=== PATIENT | male | born 1960 | race Caucasian/White ===

== ENCOUNTER 2017-02-12 15:05 | Emergency (ER) | payer SELFPAY ==
[2017-02-12 15:08] VITALS: BP 136/71; PULSE 77; RESP 16; TEMP 98.4; O2SAT 99
[2017-02-12] MEDS ORDERED: predniSONE 20 MG TAB PO ONE (15:30)
[2017-02-12] MEDS ORDERED: FAMOTIDINE 20 MG TAB PO ONE (15:30)
--- NOTE | 2017-02-12 15:33 | PD ---
HPI Chief Complaint: Skin Problem Time Seen by Provider: 15:21 Travel History International Travel<30 days: No Contact w/Intl Traveler<30days: No Traveled to known affect area: No History of Present Illness HPI Patient comes in complaining of a pruritic rash that he first noticed 2-3 days ago on his back. Patient denies doing anything for it. Patient states he has some associated mild discomfort that he describes as feeling like a biting sensation in the skin. Patient does carry a backpack and states he thinks this is irritating it. Denies any weight loss, fevers, nausea, vomiting, abdominal pain, shortness of breath, chest pain, being around anyone else with similar, or any known new allergen exposures. Denies anything making it better. Severity mild. PFSH Past Medical History Anxiety: Yes Depression: Yes Diabetes: No Diminished Hearing: No Neurologic: Yes (SCIATICA) Psychiatric: Yes Immunizations Current: Yes PNEUMOCCOCAL Vaccine (Year): 2010 Past Surgical History Oral Surgery: Yes Social History Alcohol Use: Yes Tobacco Use: Yes ("sometimes") Substance Use: Yes Allergies-Medications (Allergen,Severity, Reaction): Coded Allergies: penicillin G (Verified Allergy, Intermediate, rash, 02/12/17) cephalexin (Verified Allergy, Mild, rash, 02/12/17) Reported Meds & Prescriptions Reported Meds & Active Scripts Active Pepcid (Famotidine) 20 Mg Tab 20 Mg PO BID 10 Days Medrol Dosepak (Methylprednisolone) 4 Mg Dspk 4 Mg PO DIRECTED Per Pharmacist direction Review of Systems Except as stated in HPI: all other systems reviewed are Neg Physical Exam Narrative GENERAL: Well-developed, overly nourished, in no acute distress, and non-ill appearing. SKIN: Focused skin assessment warm and dry. There is a blanching erythematous rash noted on left lateral chest wall and right posterior thoracic cavity. Rash appears possibly from skin irritation. No fluctuation, induration, crepitus, drainage, or open wound. Rash is not consistent with shingles, scabies, folliculitis, abscess, or gangrene. HEAD: Atraumatic. Normocephalic. EYES: Pupils equal and round. EOMI. No scleral icterus. No injection or drainage. ENT: No nasal bleeding or discharge. Mucous membranes pink and moist. NECK: Trachea midline. Supple. No nuclear rigidity. RESPIRATORY: No accessory muscle use. No respiratory distress. MUSCULOSKELETAL: No obvious deformities. No clubbing. No cyanosis. No edema. Full range of motion. NEUROLOGICAL: Awake and alert. No obvious cranial nerve deficits. Motor grossly within normal limits. Normal speech. PSYCHIATRIC: Appropriate mood and affect; insight and judgment normal. Data Data Last Documented VS Vital Signs Date Time Temp Pulse Resp B/P (MAP) Pulse Ox O2 Delivery O2 Flow Rate FiO2 02/12/17 15:45 97.9 76 17 120/83 (95) 99 Orders Orders Prednisone (Deltasone) (02/12/17 15:30) Famotidine (Pepcid) (02/12/17 15:30) MDM Medical Decision Making Medical Screen Exam Complete: Yes Emergency Medical Condition: Yes Differential Diagnosis Staph, folliculitis, shingles, allergic reaction, scabies, rash, other Narrative Course The patient presented with nonspecific rash/dermatitis. There were no blisters or bullae, target lesions, purpura or petechia, nor vesiculobullous or scarlatiniform lesions. The patient looks great and was non-ill appearing. There was no evidence to suggest scabies, cellulitis, folliculitis or abscess, Staph. Scalded Skin Syndrome, Toxic Shock, Toxic Epidermal necrolysis, Kawasaki , Measles, Rubella, cutaneous T cell lymphoma, Erythema Multiforme (minor or major). Plan of care was discussed with the patient and the patient is to follow up with their physician. The patient agreed with plan. Patient in no obvious distress upon re-evaluation. Patient was asked if they wanted to speak to my attending, which the patient did not wish to do at this time. Any questions/concerns in reference to patient diagnosis/condition discussed and clarified prior to patient's discharge. Reinforced sheer importance of close follow up with patient's primary physician or primary care clinic. Instructed patient to return to ED immediately, if symptoms return/ worsen. Pt showed understanding of above instructions. Further instructions and recommendations were detailed in discharge paperwork. Pt ambulated without difficulty out of ED at discharge. Diagnosis Primary Impression: Rash Patient Instructions: Acute Rash (ED), General Instructions Additional Instructions: Follow-up with your primary care physician in 3-5 days for reevaluation. Take all medication as prescribed. Use [id number] Benadryl or Claritin or Zyrtec for symptomatic relief. Follow instructions on the packaging. Return to the emergency department if symptoms get worse. Med/Other Pt SpecificInfo: Prescription(s) given Scripts Famotidine (Pepcid) 20 Mg Tab 20 MG PO BID for 10 Days, TAB 0 Refills Prov: Emanuel Clayton MD 02/12/17 Methylprednisolone Dosepak (Medrol Dosepak) 4 Mg Dspk 4 MG PO DIRECTED, #1 DSPK 0 Refills Per Pharmacist direction Prov: Emanuel Clayton MD 02/12/17 Disposition: 01 DISCHARGE HOME Condition: Stable Feliberto Baxter Feb 12, 2017 15:33
[2017-02-12] MEDS ORDERED: MEDR4PAK PO (15:34)
[2017-02-12] MEDS ORDERED: FAMO1TAB37 PO (15:34)
[2017-02-12 15:45] VITALS: BP 120/83; TEMP 97.9
== END 2017-02-12 15:45 | disposition home or self-care (01) ==
LOC: NEPD 15:05
DX: R21 Rash and other nonspecific skin eruption (principal); Z72.0 Tobacco use
CPT/HCPCS: 99284; J7512

== ENCOUNTER 2017-03-25 06:59 | Emergency (ER) | payer SELFPAY ==
[~2017-03-25] VITALS: Ht 180.3 cm; Wt 93.0 kg
[~2017-03-25 06:59] MED LIST: FAMO1TAB37 PO; MEDR4PAK PO
[2017-03-25 07:08] VITALS: BP 133/79; PULSE 77; RESP 16; TEMP 98.6; O2SAT 95
[2017-03-25] MEDS ORDERED: CLAR5TAB9 PO (07:35)
--- NOTE | 2017-03-25 07:35 | PD ---
HPI Chief Complaint: ENT Complaint Time Seen by Provider: 07:24 Travel History International Travel<30 days: No Contact w/Intl Traveler<30days: No Traveled to known affect area: No History of Present Illness HPI The patient is a 56-year-old male who presents to the emergency department for left ear pain. The patient notes a one-week history of left ear pain that is associated with fullness, occasional ringing of the ear, muffled hearing, and mild discomfort of the left ear. He denies any drainage from the left ear and denies any trauma to the left ear. The patient does have a history of similar symptoms in the past. He denies any sore throat or significant anterior cervical neck pain. He denies any associated fever, chills , or sweats. The patient denies any chronic medical problems, medications, but is allergic to Keflex and penicillin G. The patient denies any associated nausea, vomiting, fever, chills, or sweats. Symptoms are mild, there are no current alleviating or exacerbating factors. PFSH Past Medical History Anxiety: Yes Depression: Yes Diabetes: No Diminished Hearing: No Neurologic: Yes (SCIATICA) Psychiatric: Yes Immunizations Current: Yes Tetanus Vaccination: < 5 Years Influenza Vaccination: Yes PNEUMOCCOCAL Vaccine (Year): 2010 Past Surgical History Oral Surgery: Yes Social History Alcohol Use: Yes (ocassionally) Tobacco Use: Yes ("sometimes") Substance Use: No (pt denies) Allergies-Medications (Allergen,Severity, Reaction): Coded Allergies: penicillin G (Verified Allergy, Intermediate, rash, 03/25/17) cephalexin (Verified Allergy, Mild, rash, 03/25/17) Reported Meds & Prescriptions Reported Meds & Active Scripts Active Review of Systems General / Constitutional: No: Fever HENT: Positive: Earache, No: Headaches, Vertigo, Lightheadedness, Sore Throat, Congestion, Neck Pain Gastrointestinal: No: Nausea, Vomiting Skin: No Rash Neurologic: No: Dizziness Physical Exam Narrative GENERAL: Awake, alert, nontoxic-appearing 56-year-old male who appears his stated age and is in no acute respiratory distress. SKIN: Focused skin assessment warm/dry. HEAD: Atraumatic. Normocephalic. EYES: Pupils equal and round. No scleral icterus. No injection or drainage. ENT: No nasal bleeding or discharge. Mucous membranes pink and moist. The right TM is translucent and the right EAC is clear. The left tympanic membranes is dull with slight bulge but no erythema. Left EAC is clear. Minimal left tragal tenderness. Cobblestoning in posterior oropharynx but no exudate. NECK: Trachea midline. No JVD. No cervical lymphadenopathy noted. No posterior occipital/cervical lymphadenopathy noted. MUSCULOSKELETAL: No obvious deformities. No clubbing. No cyanosis. No edema. NEUROLOGICAL: Awake and alert. No obvious cranial nerve deficits. Motor grossly within normal limits. Normal speech. Nonfocal. Oriented 4. PSYCHIATRIC: Appropriate mood and affect; insight and judgment normal. Data Data Last Documented VS Vital Signs Date Time Temp Pulse Resp B/P (MAP) Pulse Ox O2 Delivery O2 Flow Rate FiO2 03/25/17 07:08 98.6 77 16 133/79 (97) 95 MDM Medical Decision Making Medical Screen Exam Complete: Yes Emergency Medical Condition: Yes Medical Record Reviewed: Yes Differential Diagnosis Differential diagnosis includes otitis media, otitis externa, serous otitis, eustachian tube dysfunction, otalgia, vertebral artery dissection, carotid artery dissection, pharyngitis, tonsillitis, pharyngeal abscess. Narrative Course The patient's physical examination and symptoms are consistent with serous otitis, may be secondary to eustachian tube dysfunction. The patient is nonfocal on exam, doubt carotid or vertebral artery dissection. The patient is currently homeless and does not have medical insurance, therefore, patient was administered an injection of Decadron 8 mg IM for possible eustachian tube dysfunction and inflammation and will be placed on Claritin-D twice a day for 2 weeks. He states he has no history of hypertension. He is advised to follow- up with ENT if symptoms persist. Diagnosis Primary Impression: Serous otitis media Qualified Codes: H65.05 - Acute serous otitis media, recurrent, left ear Additional Impression: Otalgia of left ear Patient Instructions: General Instructions Additional Instructions: Medication as directed. Follow-up with ENT or primary physician if symptoms persist. Avoid placing Q-tips into the left ear. Return if symptoms worsen or progress. Med/Other Pt SpecificInfo: Prescription(s) given Scripts Loratadine-Pseudoephedrine 12 HR (Claritin-D 12 HR) 5-120 Mg Tab 1 TAB PO BID for Allergy Management for 14 Days, #28 TAB 0 Refills Prov: Davey Elizondo MD 03/25/17 Disposition: 01 DISCHARGE HOME Condition: Stable Davey Elizondo MD Mar 25, 2017 07:35
[2017-03-25] MEDS ORDERED: DEXAMETHASONE SOD PHOS 4 MG/ML VIAL IM ONE (07:45)
== END 2017-03-25 08:13 | disposition home or self-care (01) ==
LOC: PHED 06:59
DX: H65.05 Acute serous otitis media, recurrent, left ear (principal); Z72.0 Tobacco use
CPT/HCPCS: 96372; 99284; J1100

== ENCOUNTER 2017-06-10 07:35 | Emergency (ER) | payer SELFPAY ==
[~2017-06-10] VITALS: Ht 177.8 cm; Wt 82.0 kg
[2017-06-10 07:35] VITALS: BP 119/71; PULSE 53; RESP 18; TEMP 97.5; O2SAT 97
[~2017-06-10 07:35] MED LIST changes: +CLAR5TAB9 PO; -FAMO1TAB37 PO; -MEDR4PAK PO
[2017-06-10] MEDS ORDERED: SODIUM CHLORIDE 0.9% FLUSH 10 ML FLUSH IV FLUSH PRN (08:00)
[2017-06-10] MEDS ORDERED: ONDANSETRON HCL 4 MG/2 ML VIAL IVP ONE (08:00)
[2017-06-10] MEDS ORDERED: SODIUM CHLOR 0.9% 1000 ML INJ 1,000 ML IV ONE (08:00)
--- NOTE | 2017-06-10 08:02 | PD ---
HPI Chief Complaint: GI Complaint Time Seen by Provider: 07:49 Travel History International Travel<30 days: No Contact w/Intl Traveler<30days: No Traveled to known affect area: No History of Present Illness HPI This patient complains of nausea and vomiting and diarrhea. Duration 3 days. Severity is moderate. He had very minor abdominal cramping but not sustained and has resolved. Denies fever. He reported there was some blood in his diarrhea and some blood in his vomit. He denies alcohol abuse or drug use. No alleviating factors. No Exacerbating factors. PFSH Past Medical History Anxiety: Yes Depression: Yes Diabetes: No Diminished Hearing: No Neurologic: Yes (SCIATICA) Psychiatric: Yes Immunizations Current: Yes Tetanus Vaccination: < 5 Years Influenza Vaccination: Yes PNEUMOCCOCAL Vaccine (Year): 2010 Past Surgical History Oral Surgery: Yes Social History Alcohol Use: Yes (ocassionally) Tobacco Use: Yes ("sometimes") Substance Use: No (pt denies) Allergies-Medications (Allergen,Severity, Reaction): Coded Allergies: penicillin G (Verified Allergy, Intermediate, rash, 06/10/17) cephalexin (Verified Allergy, Mild, rash, 06/10/17) Reported Meds & Prescriptions Reported Meds & Active Scripts Active No Active Prescriptions or Reported Medications Review of Systems General / Constitutional: No: Fever Eyes: No: Visual changes HENT: No: Headaches Cardiovascular: No: Chest Pain or Discomfort Respiratory: No: Shortness of Breath Gastrointestinal: Positive: Nausea, Vomiting, Diarrhea, No: Abdominal Pain Genitourinary: No: Dysuria Musculoskeletal: No: Pain Skin: No Rash Neurologic: No: Weakness Psychiatric: No: Depression Endocrine: No: Polydipsia Hematologic/Lymphatic: No: Easy Bruising Physical Exam Narrative GENERAL: Well-nourished, well-developed patient in no apparent distress. SKIN: Focused skin assessment reveals no rash and nodules. Skin is Warm and dry. HEAD: Atraumatic. Normocephalic. EYES: Pupils equal and round. No scleral icterus. No injection or drainage. ENT: No nasal bleeding or discharge. Mucous membranes pink and moist. NECK: Trachea midline. No JVD. CARDIOVASCULAR: Regular rate and rhythm. No murmur appreciated. RESPIRATORY: No accessory muscle use. Clear to auscultation. Breath sounds equal bilaterally. GASTROINTESTINAL: Abdomen soft, non-tender, nondistended. Hepatic and splenic margins not palpable. MUSCULOSKELETAL: No obvious deformities. No clubbing. No cyanosis. No edema. NEUROLOGICAL: Awake and alert. No obvious cranial nerve deficits. Motor grossly within normal limits. Normal speech. PSYCHIATRIC: Appropriate mood and affect; insight and judgment normal. Data Data Last Documented VS Vital Signs Date Time Temp Pulse Resp B/P (MAP) Pulse Ox O2 Delivery O2 Flow Rate FiO2 06/10/17 07:35 97.5 53 18 119/71 (87) 97 Orders Orders Complete Blood Count With Diff (06/10/17 07:54) Comprehensive Metabolic Panel (06/10/17 07:54) Lipase (06/10/17 07:54) Prothrombin Time / Inr (Pt) (06/10/17 07:54) Act Partial Throm Time (Ptt) (06/10/17 07:54) Iv Access Insert/Monitor (06/10/17 07:54) Ecg Monitoring (06/10/17 07:54) Oximetry (06/10/17 07:54) NPO (06/10/17 07:54) Ondansetron Inj (Zofran Inj) (06/10/17 08:00) Sodium Chloride 0.9% Flush (Ns Flush) (06/10/17 08:00) Sodium Chlor 0.9% 1000 Ml Inj (Ns 1000 M (06/10/17 08:00) Labs Laboratory Tests Test 06/10/17 08:03 White Blood Count 6.6 TH/MM3 Red Blood Count 4.75 MIL/MM3 Hemoglobin 14.6 GM/DL Hematocrit 44.0 % Mean Corpuscular Volume 92.5 FL Mean Corpuscular Hemoglobin 30.8 PG Mean Corpuscular Hemoglobin Concent 33.2 % Red Cell Distribution Width 11.3 % Platelet Count 200 TH/MM3 Mean Platelet Volume 8.2 FL Neutrophils (%) (Auto) 71.1 % Lymphocytes (%) (Auto) 21.4 % Monocytes (%) (Auto) 6.6 % Eosinophils (%) (Auto) 0.5 % Basophils (%) (Auto) 0.4 % Neutrophils # (Auto) 4.8 TH/MM3 Lymphocytes # (Auto) 1.4 TH/MM3 Monocytes # (Auto) 0.4 TH/MM3 Eosinophils # (Auto) 0.0 TH/MM3 Basophils # (Auto) 0.0 TH/MM3 CBC Comment DIFF FINAL Differential Comment Prothrombin Time 11.1 SEC Prothromb Time International Ratio 1.1 RATIO Activated Partial Thromboplast Time 25.2 SEC Blood Urea Nitrogen 12 MG/DL Creatinine 0.93 MG/DL Random Glucose 129 MG/DL Total Protein 7.1 GM/DL Albumin 3.7 GM/DL Calcium Level 8.7 MG/DL Alkaline Phosphatase 56 U/L Aspartate Amino Transf (AST/SGOT) 11 U/L Alanine Aminotransferase (ALT/SGPT) 20 U/L Total Bilirubin 0.7 MG/DL Sodium Level 140 MEQ/L Potassium Level 3.9 MEQ/L Chloride Level 105 MEQ/L Carbon Dioxide Level 26.2 MEQ/L Anion Gap 9 MEQ/L Estimat Glomerular Filtration Rate 84 ML/MIN Lipase 64 U/L MDM Medical Decision Making Medical Screen Exam Complete: Yes Emergency Medical Condition: Yes Medical Record Reviewed: Yes Differential Diagnosis Gastroenteritis, colitis, gastric ulcer Narrative Course I have reviewed the patient's electronic medical record. IV placed I gave him IV Zofran and 1 L normal saline IV bolus CBC is normal Metabolic profile is normal LFTs are normal Lipase is normal Coagulation studies are normal On recheck he is clinically improved. He has normal vital signs and normal lab survey Zofran prescribed Stable for outpatient follow-up Diagnosis Primary Impression: Nausea vomiting and diarrhea Additional Impression: Dizziness Additional Instructions: The patient was advised to follow up with their physician and return if they worsen. I have recommended clear liquids for 24 hours, then gradually advance as tolerated. Med/Other Pt SpecificInfo: Prescription(s) given Scripts Ondansetron (Zofran) 4 Mg Tab 4 MG PO Q6HR Y for NAUSEA OR VOMITING, #12 TAB 0 Refills Prov: Emanuel Clayton MD 06/10/17 Disposition: DISCHARGE HOME Condition: Stable Emanuel Clayton MD Jun 10, 2017 08:02
[2017-06-10] MEDS ORDERED: ZOFR4TAB PO (08:50)
[2017-06-10 09:37] LABS: AUTOMATED NEUTROPHIL # 6.4 TH/MM3 (1.8-7.7); BASOPHIL % 0.4 % (0.0-2.0); EOSINOPHIL % 0.4 % (0.0-4.0); HEMATOCRIT 42.5 % (39.0-51.0); HEMOGLOBIN 14.3 GM/DL (13.0-17.0); LYMPH % 12.1 % (9.0-44.0); MEAN CELL VOLUME 91.6 FL (80.0-100.0); MEAN CORPUSCULAR HEMOGLOBIN 30.9 PG (27.0-34.0); MEAN CORPUSCULAR HGB CONC 33.8 % (32.0-36.0); MEAN PLATELET VOLUME 7.9 FL (7.0-11.0); MONO % 7.5 % (0.0-8.0); MONOCYTE # 0.6 TH/MM3 (0-0.9); NEUT % 79.6 % (16.0-70.0); PLATELET COUNT 191 TH/MM3 (150-450); RED BLOOD COUNT 4.64 MIL/MM3 (4.50-5.90); RED CELL DISTRIBUTION WIDTH 11.5 % (11.6-17.2)
[2017-06-10 09:49] LABS: INTERNATIONAL NORMALIZED RATIO 1.1 RATIO; PROTHROMBIN TIME - PATIENT 11.2 SEC (9.8-11.6)
[2017-06-10 10:11] LABS: BLOOD UREA NITROGEN 11 MG/DL (7-18); CHLORIDE 104 MEQ/L (98-107); GLOMERULAR FILTRATION RATE 100 ML/MIN (>89); GLUCOSE,RANDOM 110 MG/DL (74-106); SODIUM (NA) 142 MEQ/L (136-145)
[2017-06-10 10:14] LABS: ALBUMIN 3.5 GM/DL (3.4-5.0); BICARBONATE 25.4 MEQ/L (21.0-32.0); CALCIUM 8.4 MG/DL (8.5-10.1); LIPASE 61 U/L (73-393)
[2017-06-10 10:16] VITALS: BP 118/67; PULSE 51; RESP 18; O2SAT 98
[2017-06-10 10:17] LABS: AST (GOT) 15 U/L (15-37)
[2017-06-10 10:19] LABS: TOTAL PROTEIN 6.7 GM/DL (6.4-8.2)
[2017-06-10 10:20] LABS: ALKALINE PHOSPHATASE 49 U/L (45-117)
[2017-06-10 10:21] LABS: ALT (GPT) 17 U/L (12-78)
[2017-06-10 10:29] LABS: TOTAL BILIRUBIN ADULT 0.5 MG/DL (0.2-1.0)
[2017-06-10 10:50] VITALS: BP 143/72; PULSE 72; RESP 18; TEMP 98.2; O2SAT 96
== END 2017-06-10 11:15 | disposition home or self-care (01) ==
LOC: PHED 07:35
DX: R11.2 Nausea with vomiting, unspecified (principal); R19.7 Diarrhea, unspecified; R42 Dizziness and giddiness; F41.9 Anxiety disorder, unspecified; F32.9 Major depressive disorder, single episode, unspecified; Z72.0 Tobacco use; Z88.0 Allergy status to penicillin; Z88.8 Allergy status to other drugs, medicaments and biological substances
CPT/HCPCS: 80053; 83690; 85025; 85610; 85730; 96374; 99284; J2405; J7030

== ENCOUNTER 2017-06-10 18:39 | Emergency (ER) | payer SELFPAY ==
[~2017-06-10] VITALS: Ht 180.3 cm; Wt 90.0 kg
[~2017-06-10 18:39] MED LIST changes: +ZOFR4TAB PO
[2017-06-10] MEDS ORDERED: IOHEXOL 350 MG/ML 10 ML VIAL (for RAD DIAG) IVCONTRAST ONE (18:40)
[2017-06-10 18:52] VITALS: BP 128/65; PULSE 62; RESP 18; TEMP 97.6; O2SAT 97
[2017-06-10 19:38] VITALS: BP 114/70; PULSE 64; RESP 15; O2SAT 99
[2017-06-10] MEDS ORDERED: SODIUM CHLOR 0.9% 1000 ML INJ 1,000 ML IV SCH (19:47)
--- NOTE | 2017-06-10 19:51 | PD ---
HPI Chief Complaint: GI Complaint Time Seen by Provider: 19:43 Travel History International Travel<30 days: No Contact w/Intl Traveler<30days: No Traveled to known affect area: No History of Present Illness HPI 56-year-old male with homelessness here for evaluation of nausea, vomiting, diarrhea, neck pain. Patient was evaluated in the [facility] [place] [facility] emergency department today with similar complaints and had lab work were all unremarkable. He was given Zofran with improvement in symptoms and discharged home. He states he went to the library after being discharged, then presented here by ambulance. He reports that there is blood in his emesis and diarrhea. He is complaining of some abdominal cramping which is diffuse and is worse with vomiting. He also reports feeling dizzy and having several falls and has neck pain because of one of the falls. No paresthesias or motor deficits. No visual changes. He is not on any antiplatelets or anticoagulants. [facility] Past Medical History Anxiety: Yes Depression: Yes Diabetes: No Diminished Hearing: No Neurologic: Yes (SCIATICA) Psychiatric: Yes Immunizations Current: Yes PNEUMOCCOCAL Vaccine (Year): 2010 Past Surgical History Surgical History: No Previous Surgery Oral Surgery: Yes Social History Alcohol Use: Yes (ocassionally) Tobacco Use: Yes ("sometimes") Substance Use: No (pt denies) Allergies-Medications (Allergen,Severity, Reaction): Coded Allergies: penicillin G (Verified Allergy, Intermediate, rash, 06/10/17) cephalexin (Verified Allergy, Mild, rash, 06/10/17) Reported Meds & Prescriptions Reported Meds & Active Scripts Active Zofran (Ondansetron HCl) 4 Mg Tab 4 Mg PO Q6HR PRN Review of Systems Except as stated in HPI: all other systems reviewed are Neg Physical Exam Narrative GENERAL: Well-developed, well-nourished, no apparent distress. SKIN: Focused skin assessment warm/dry. No lacerations, abrasions, or ecchymosis. HEAD: Atraumatic. Normocephalic. EYES: Pupils equal, round, 3 mm's, reactive to light. No scleral icterus. No injection or drainage. ENT: No nasal bleeding or discharge. Mucous membranes pink and moist. NECK: Trachea midline. No JVD. No midline vertebral step-off or tenderness. Mild right trapezius tenderness. CARDIOVASCULAR: Regular rate and rhythm. RESPIRATORY: No accessory muscle use. Clear to auscultation. Breath sounds equal bilaterally. GASTROINTESTINAL: Abdomen soft, non-tender, nondistended. RECTUM: No masses, no fissures, no hemorrhoids, heme-negative brown stool. MUSCULOSKELETAL: No obvious deformities. No clubbing. No cyanosis. No edema. NEUROLOGICAL: Awake and alert. No obvious cranial nerve deficits. Motor grossly within normal limits. Normal speech. No focal deficits. PSYCHIATRIC: Appropriate mood and affect; insight and judgment normal. Data Data Last Documented VS Vital Signs Date Time Temp Pulse Resp B/P (MAP) Pulse Ox O2 Delivery O2 Flow Rate FiO2 06/10/17 20:05 20 99 Room Air 06/10/17 19:38 64 06/10/17 18:52 97.6 Orders Orders Complete Blood Count With Diff (06/10/17 19:47) Comprehensive Metabolic Panel (06/10/17 19:47) Lipase (06/10/17 19:47) Prothrombin Time / Inr (Pt) (06/10/17 19:47) Act Partial Throm Time (Ptt) (06/10/17 19:47) Urinalysis - C+S If Indicated (06/10/17 19:47) Ct Abd/Pel W Iv Contrast(Rout) (06/10/17 19:47) Iv Access Insert/Monitor (06/10/17 19:47) Ecg Monitoring (06/10/17 19:47) Oximetry (06/10/17 19:47) Sodium Chlor 0.9% 1000 Ml Inj (Ns 1000 M (06/10/17 19:47) Sodium Chloride 0.9% Flush (Ns Flush) (06/10/17 20:00) Electrocardiogram (06/10/17 19:47) Ct Brain W/O Iv Contrast(Rout) (06/10/17 ) Ct Cerv Spine W/O Contrast (06/10/17 ) Influenzae A/B Antigen (06/10/17 19:51) Alcohol (Ethanol) (06/10/17 19:50) Ondansetron Inj (Zofran Inj) (06/10/17 21:30) Iohexol 350 Inj (Omnipaque 350 Inj) (06/10/17 18:40) Labs Laboratory Tests Test 06/10/17 19:50 White Blood Count 9.1 TH/MM3 Red Blood Count 4.59 MIL/MM3 Hemoglobin 14.5 GM/DL Hematocrit 41.8 % Mean Corpuscular Volume 91.2 FL Mean Corpuscular Hemoglobin 31.6 PG Mean Corpuscular Hemoglobin Concent 34.6 % Red Cell Distribution Width 12.4 % Platelet Count 204 TH/MM3 Mean Platelet Volume 8.4 FL Neutrophils (%) (Auto) 77.7 % Lymphocytes (%) (Auto) 15.2 % Monocytes (%) (Auto) 6.7 % Eosinophils (%) (Auto) 0.1 % Basophils (%) (Auto) 0.3 % Neutrophils # (Auto) 7.1 TH/MM3 Lymphocytes # (Auto) 1.4 TH/MM3 Monocytes # (Auto) 0.6 TH/MM3 Eosinophils # (Auto) 0.0 TH/MM3 Basophils # (Auto) 0.0 TH/MM3 CBC Comment DIFF FINAL Differential Comment Prothrombin Time 11.4 SEC Prothromb Time International Ratio 1.1 RATIO Activated Partial Thromboplast Time 28.2 SEC Blood Urea Nitrogen 11 MG/DL Creatinine 0.87 MG/DL Random Glucose 95 MG/DL Total Protein 6.9 GM/DL Albumin 4.0 GM/DL Calcium Level 8.6 MG/DL Alkaline Phosphatase 50 U/L Aspartate Amino Transf (AST/SGOT) 10 U/L Alanine Aminotransferase (ALT/SGPT) 17 U/L Total Bilirubin 0.6 MG/DL Sodium Level 140 MEQ/L Potassium Level 3.5 MEQ/L Chloride Level 105 MEQ/L Carbon Dioxide Level 23.9 MEQ/L Anion Gap 11 MEQ/L Estimat Glomerular Filtration Rate 91 ML/MIN Lipase 46 U/L Ethyl Alcohol Level LESS THAN 3 MG/DL [facility] Medical Decision Making Medical Screen Exam Complete: Yes Emergency Medical Condition: Yes Interpretation(s) EKG: Sinus, rate 56, normal axis, normal intervals, no acute ischemic abnormality. Differential Diagnosis Viral illness, gastroenteritis, GI bleed, diverticulitis, colitis, intracranial trauma, cervical spine injury, malingering Narrative Course Vital signs show heart rate 62, blood pressure 120/65, pulse ox 99% on room air , oral temp of 97.6F. CBC is unremarkable. CMP is unremarkable. Lipase is 46. Coags are normal. Alcohol level is negative. Influenza is negative. CT head: CONCLUSION: Normal examination. CT cervical spine: CONCLUSION: Moderate to severe degenerative disc disease without evidence for acute fracture. CT abdomen pelvis: CONCLUSION: 1. The subcentimeter low density right lobe liver lesions likely small cysts. 2. Small caliber varices are seen within the abdomen as described above. 3. Diverticulosis without diverticulitis. Patient was made aware of all findings. He is resting comfortably. His hemoglobin is 14.5 and is unchanged from earlier today. His stool is heme negative and brown. He states he drinks alcohol occasionally not in excess, and his last drink was about a week ago. There are no focal deficits on exam. At this point he is stable for discharge home with outpatient follow-up with a primary care physician this week. He was informed on when to return to the emergency department. He verbalizes understanding and agreement with plan. Diagnosis Primary Impression: Gastroenteritis Additional Impression: Dizziness Referrals: [facility] Additional Instructions: Follow-up with a primary care physician this week. Return to the emergency department for worsening symptoms or any other concerns. Disposition: 01 DISCHARGE HOME Condition: Stable Joel Winchester MD Jun 10, 2017 19:51
[2017-06-10] MEDS ORDERED: SODIUM CHLORIDE 0.9% FLUSH 10 ML FLUSH IV FLUSH PRN (20:00)
[2017-06-10 20:05] VITALS: RESP 20; O2SAT 99
[2017-06-10 20:15] LABS: AUTOMATED NEUTROPHIL # 7.1 TH/MM3 (1.8-7.7); BASOPHIL % 0.3 % (0.0-2.0); EOSINOPHIL % 0.1 % (0.0-4.0); HEMATOCRIT 41.8 % (39.0-51.0); HEMOGLOBIN 14.5 GM/DL (13.0-17.0); LYMPH % 15.2 % (9.0-44.0); LYMPHOCYTE # 1.4 TH/MM3 (1.0-4.8); MEAN CELL VOLUME 91.2 FL (80.0-100.0); MEAN CORPUSCULAR HEMOGLOBIN 31.6 PG (27.0-34.0); MEAN CORPUSCULAR HGB CONC 34.6 % (32.0-36.0); MEAN PLATELET VOLUME 8.4 FL (7.0-11.0); MONO % 6.7 % (0.0-8.0); MONOCYTE # 0.6 TH/MM3 (0-0.9); NEUT % 77.7 % (16.0-70.0); PLATELET COUNT 204 TH/MM3 (150-450); RED BLOOD COUNT 4.59 MIL/MM3 (4.50-5.90); RED CELL DISTRIBUTION WIDTH 12.4 % (11.6-17.2); WHITE BLOOD COUNT 9.1 TH/MM3 (4.0-11.0)
[2017-06-10 20:26] LABS: INTERNATIONAL NORMALIZED RATIO 1.1 RATIO; PROTHROMBIN TIME - PATIENT 11.4 SEC (9.8-11.6)
[2017-06-10 20:35] LABS: AST (GOT) 10 U/L (15-37); BICARBONATE 23.9 MEQ/L (21.0-32.0); BLOOD UREA NITROGEN 11 MG/DL (7-18); CALCIUM 8.6 MG/DL (8.5-10.1); CHLORIDE 105 MEQ/L (98-107); CREATININE 0.87 MG/DL (0.60-1.30); GLOMERULAR FILTRATION RATE 91 ML/MIN (>89); GLUCOSE,RANDOM 95 MG/DL (74-106); LIPASE 46 U/L (73-393); SODIUM (NA) 140 MEQ/L (136-145)
[2017-06-10 20:43] LABS: ALKALINE PHOSPHATASE 50 U/L (45-117); ALT (GPT) 17 U/L (12-78); TOTAL BILIRUBIN ADULT 0.6 MG/DL (0.2-1.0); TOTAL PROTEIN 6.9 GM/DL (6.4-8.2)
--- NOTE | 2017-06-10 21:16 | RADRPT ---
EXAM DATE/TIME: 06/10/2017 21:08 [place] COMPARISON: No previous studies available for comparison. INDICATIONS : Patient complains of dizziness. RADIATION DOSE: 60.70 CTDIvol (mGy) MEDICAL HISTORY : gerd SURGICAL HISTORY : None. ENCOUNTER: Initial ACUITY: 1 day PAIN SCALE: 0/10 LOCATION: cranial TECHNIQUE: Multiple contiguous axial images were obtained of the head. Using automated exposure control and adj ustment of the mA and/or kV according to patient size, radiation dose was kept as low as reasonably a chievable to obtain optimal diagnostic quality images. DICOM format image data is available electro nically for review and comparison. FINDINGS: CEREBRUM: The ventricles are normal for age. No evidence of midline shift, mass lesion, hemorrhage or acute in farction. No extra-axial fluid collections are seen. POSTERIOR FOSSA: The cerebellum and brainstem are intact. The 4th ventricle is midline. The cerebellopontine angle i s unremarkable. EXTRACRANIAL: The visualized portion of the orbits is intact. SKULL: The calvaria is intact. No evidence of skull fracture. CONCLUSION: Normal examination. Rell Castro MD on June 10, 2017 at 21:13 Board Certified Radiologist. This report was verified electronically.
--- NOTE | 2017-06-10 21:21 | RADRPT ---
EXAM DATE/TIME: 06/10/2017 21:08 [facility] COMPARISON: No previous studies available for comparison. INDICATIONS : Patient fell today, complains of neck pain. RADIATION DOSE: 18.91 CTDIvol (mGy) MEDICAL HISTORY : gerd SURGICAL HISTORY : None. ENCOUNTER: Initial ACUITY: 1 day PAIN SCALE: 7/10 LOCATION: neck TECHNIQUE: Volumetric scanning of the cervical spine was performed. Multiplanar reconstructions in the sagittal, coronal and oblique axial planes were performed. Using automated exposure control and adjustment o f the mA and/or kV according to patient size, radiation dose was kept as low as reasonably achievable to obtain optimal diagnostic quality images. DICOM format image data is available electronically f or review and comparison. FINDINGS: Moderate to severe disc space narrowing throughout the cervical spine. No prevertebral soft tissue sw elling or compression deformity. Odontoid process is intact. Cervicothoracic junction is approximated . There is mild multilevel endplate sclerosis and osteophytosis. Multilevel uncovertebral hypertrophy . No fractures are seen. CONCLUSION: Moderate to severe degenerative disc disease without evidence for acute fracture. Rell Castro MD on June 10, 2017 at 21:18 Board Certified Radiologist. This report was verified electronically.
--- NOTE | 2017-06-10 21:29 | RADRPT ---
EXAM DATE/TIME: 06/10/2017 21:14 [facility] COMPARISON: No previous studies available for comparison. INDICATIONS : Patient complains of abdomen pain with bloody stool. IV CONTRAST: 100 cc Omnipaque 350 (iohexol) IV ORAL CONTRAST: No oral contrast ingested. RADIATION DOSE: 13.20 CTDIvol (mGy) MEDICAL HISTORY : gerd SURGICAL HISTORY : None. ENCOUNTER: Initial ACUITY: 1 day PAIN SCALE: 7/10 LOCATION: abdomen TECHNIQUE: Volumetric scanning of the abdomen and pelvis was performed. Using automated exposure control and ad justment of the mA and/or kV according to patient size, radiation dose was kept as low as reasonably achievable to obtain optimal diagnostic quality images. DICOM format image data is available electro nically for review and comparison. FINDINGS: One aces are clear. Osseous structures are intact. No pleural or pericardial effusions. Spleen, pancr eas, adrenals, kidneys are unremarkable. There are small caliber varices adjacent to the greater curv ature the stomach and gastrohepatic ligament. Portal vein is patent. Gallbladder unremarkable. There are 2 subcentimeter low density lesions in the right lobe of the liver. Urinary bladder and prostate are unremarkable. Diverticulosis of the sigmoid colon and descending colon identified. There are omen geronimo varices identified. Small fat containing left femoral hernia. Retroaortic left renal vein. CONCLUSION: 1. The subcentimeter low density right lobe liver lesions likely small cysts. 2. Small caliber varices are seen within the abdomen as described above. 3. Diverticulosis without diverticulitis. Rell Castro MD on June 10, 2017 at 21:24 Board Certified Radiologist. This report was verified electronically.
[2017-06-10] MEDS ORDERED: ONDANSETRON HCL 4 MG/2 ML VIAL IV PUSH ONE (21:30)
--- NOTE | 2017-06-11 22:38 | EKG ---
Date Performed: 06/10/2017 Time Performed: 20:14:29 PTAGE: 56 years EKG: SINUS BRADYCARDIA POSSIBLE RIGHT VENTRICULAR CONDUCTION DELAY BORDERLINE ECG NO PREVIOUS TRACING DOCTOR: Jassi Sierra Interpretating Date/Time 06/11/2017 22:37:02
== END 2017-06-10 22:14 | disposition home or self-care (01) ==
LOC: NEPC 18:39
DX: K52.9 Noninfective gastroenteritis and colitis, unspecified (principal); R42 Dizziness and giddiness; R94.31 Abnormal electrocardiogram [ECG] [EKG]; M54.2 Cervicalgia; W19.XXXA Unspecified fall, initial encounter; Z72.0 Tobacco use
CPT/HCPCS: 70450; 72125; 74177; 80053; 80307; 83690; 85025; 85610; 85730; 87804; 93005; 96361; 96374; 99285; J2405; J7030; Q9967